=== PATIENT | female | born 1985 | race American Indian/Alaskan Native ===

== ENCOUNTER 2016-08-29 09:35 | Emergency (ER) | payer SELFPAY ==
[2016-08-29 10:43] LABS: Basophils % (Auto) 0.2 % (0.0-1.8); Eosinophils % (Auto) 1.4 % (0.0-4.3); Hematocrit 44.6 % (30.3-42.9); Hemoglobin 15.2 gm/dl (10.1-14.3); Mean Corpuscular HGB Conc 34 % (30-34); Mean Corpuscular Hemoglobin 31 pg (28-32); Mean Corpuscular Volume 90 fl (79-97); Platelet Count 174 K/mm3 (140-440); Red Blood Count 4.96 M/mm3 (3.65-5.03); Red Cell Distribution Width 12.4 % (13.2-15.2); White Blood Count 6.3 K/mm3 (4.5-11.0)
[2016-08-29 10:52] LABS: Anion Gap 17 mmol/L; BUN/Creatinine Ratio 18.33; Blood Urea Nitrogen 11 mg/dL (7-17); Calcium 9.1 mg/dL (8.4-10.2); Carbon Dioxide 25 mmol/L (22-30); Chloride 103.1 mmol/L (98-107); Glucose 92 mg/dL (65-100); Potassium 3.8 mmol/L (3.6-5.0); Sodium 141 mmol/L (137-145)
[2016-08-29 12:33] LABS: Bilirubin,Urine NEG (Negative); Blood,Urine SM (Negative); Ketones,Urine TR mg/dL (Negative); Leukocyte Esterase,Urine NEG (Negative); Mucus,Urine 2+ /HPF; Nitrite,Urine NEG (Negative)
[2016-08-29] MEDS ORDERED: ZOFRAN IV ONE (16:43)
[2016-08-29] MEDS ORDERED: REGLAN IV ONE (16:43)
[2016-08-29] MEDS ORDERED: NACL 0.9% 1000 ML 1,000 ML IV ONE (16:43)
--- NOTE | 2016-08-29 16:45 | Emergency Department Report ---
ED N/V/D HPI - General Chief complaint: Nausea/Vomiting/Diarrhea Stated complaint: EMESIS X 3 DAY/DIZZINESS Time Seen by Provider: 08/29/16 16:37 Source: patient Mode of arrival: Ambulatory Limitations: No Limitations - History of Present Illness MD complaint: nausea, vomiting Onset/Timin -: Gradual, days(s) Description of Vomiting: food contents, watery, bilious Associated Abdominal Pain: No Radiation: none Quality: cramping Consistency: intermittent Improves with: none Worsens with: none Context: possible food poisoning Associated Symptoms: loss of appetite, malaise, nausea/vomiting, weakness. denies: myalgias, chest pain, cough, diaphoresis, headaches, shortness of breath , syncope - Related Data Previous Rx's Medication Instructions Recorded Last Taken Type Ondansetron [Zofran Odt] 4 mg PO TID #20 tab.rapdis 08/29/16 Unknown Rx Allergies Allergy/AdvReac Type Severity Reaction Status Date / Time No Known Allergies Allergy Unverified 08/29/16 09:55 ED Review of Systems ROS: Stated complaint: EMESIS X 3 DAY/DIZZINESS Other details as noted in HPI Constitutional: denies: chills, fever Eyes: denies: eye pain, eye discharge, vision change ENT: denies: ear pain, throat pain Respiratory: denies: cough, shortness of breath, wheezing Cardiovascular: denies: chest pain, palpitations Endocrine: no symptoms reported Gastrointestinal: vomiting. denies: abdominal pain, nausea, diarrhea Genitourinary: denies: urgency, dysuria, discharge Musculoskeletal: denies: back pain, joint swelling, arthralgia Skin: denies: rash, lesions Neurological: denies: headache, weakness, paresthesias Psychiatric: denies: anxiety, depression Hematological/Lymphatic: denies: easy bleeding, easy bruising ED Past Medical Hx - Past Medical History Previous Medical History?: No - Surgical History Past Surgical History?: Yes Hx Breast Surgery: Yes (implants) - Social History Smoking Status: Never Smoker Substance Use Type: Marijuana - Medications Home Medications: Home Medications Medication Instructions Recorded Confirmed Last Taken Type Ondansetron [Zofran Odt] 4 mg PO TID #20 tab.rapdis 08/29/16 Unknown Rx ED Physical Exam - General Limitations: No Limitations General appearance: alert, in no apparent distress - Head Head exam: Present: atraumatic, normocephalic - Eye Eye exam: Present: normal appearance - ENT ENT exam: Present: mucous membranes moist - Neck Neck exam: Present: normal inspection - Respiratory Respiratory exam: Present: normal lung sounds bilaterally. Absent: respiratory distress - Cardiovascular Cardiovascular Exam: Present: regular rate, normal rhythm. Absent: systolic murmur, diastolic murmur, rubs, gallop - GI/Abdominal GI/Abdominal exam: Present: soft, normal bowel sounds - Extremities Exam Extremities exam: Present: normal inspection - Back Exam Back exam: Present: normal inspection - Neurological Exam Neurological exam: Present: alert, oriented X3 - Psychiatric Psychiatric exam: Present: normal affect, normal mood - Skin Skin exam: Present: warm, dry, intact, normal color. Absent: rash ED Course Vital Signs 08/29/16 08/29/16 08/29/16 09:56 16:45 18:48 Temperature 98.5 F Pulse Rate 70 71 Respiratory 18 16 16 Rate Blood Pressure 122/83 Blood Pressure 104/71 [Right] O2 Sat by Pulse 100 99 99 Oximetry ED Medical Decision Making - Lab Data Result diagrams: 08/29/16 10:18 08/29/16 10:18 - Radiology Data Radiology results: report reviewed, image reviewed - Medical Decision Making Patient doing well, tolerating po here in the er, improved nausea and vomiting, no abdominal pain, no fever. will dc and follow up. labs negative Kub : non specific fluid / levels Critical care attestation.: If time is entered above; I have spent that time in minutes in the direct care of this critically ill patient, excluding procedure time. ED Disposition Clinical Impression: Vomiting Disposition: DISCHARGED TO HOME OR SELFCARE Is pt being admited?: No Does the pt Need Aspirin: No Condition: Good Instructions: Acute Nausea and Vomiting (ED) Prescriptions: Ondansetron [Zofran Odt] 4 mg PO TID #20 tab.rapdis Referrals: PRIMARY CARE, [Primary Care Provider] - 3-5 Days Forms: Work/School Release Form(ED) Time of Disposition: 19:27
[2016-08-29 19:43] VITALS: BP 104/65
--- NOTE | 2016-08-30 09:33 | XRay Report ---
ABDOMEN TWO VIEWS: 08/29/16 16:43:00 CLINICAL: Nausea, vomiting and diarrhea. COMPARISON:None. FINDINGS: Supine upright views demonstrate mild distention of the colon and moderate stool in the transverse colon. Gas in the rectum. No pneumoperitoneum. No distended small bowel and no air-fluid levels. A calcification in the right mid abdomen is probably too low to be a renal calculus. The bones and soft tissues are normal. IMPRESSION: Negative abdomen.
== END 2016-08-29 19:41 | disposition home or self-care (01) ==
LOC: ED 09:35
DX: R11.2 Nausea with vomiting, unspecified (principal); F12.90 Cannabis use, unspecified, uncomplicated
CPT/HCPCS: 36415; 74020; 80048; 81001; 81025; 85025; 96361; 96374; 96375; 99284; J2405; J2765; J7030